=== PATIENT | female | born 1950 | race Caucasian/White ===

== ENCOUNTER 2019-06-18 05:46 | Day surgery (SDC) | payer MEDICARE, BC ==
[2019-06-17 16:07] VITALS: Ht 157.5 cm; Wt 82.0 kg
[~2019-06-18] VITALS: Ht 157.5 cm; Wt 82.0 kg
[2019-06-18] VITALS (13 sets, daily range): BP systolic 101–142; BP diastolic 53–74; PULSE 71–87; RESP 14–18
[~2019-06-18 05:46] MED LIST: ASPI-903 PO; ATOR20TA65 ORAL; LEVO100T8 ORAL
[2019-06-18] MEDS ORDERED: LACTATED RINGER'S 1,000 ML IV SCH (06:30)
--- NOTE | 2019-06-18 07:12 | PREAC ---
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 not on B-Castro Reported Medications Aspirin* (Aspirin* Chew) 81 Mg Tab.chew, 81 MG PO DAILY, TAB.CHEW 06/18/19 Levothyroxine Sodium* (Levothyroxine Sodium*) 100 Mcg Tablet, 1 TAB ORAL QAM 06/18/19 Atorvastatin Calcium (Atorvastatin Calcium) 20 Mg Tablet, 1 TAB ORAL QHS 06/18/19 Current Medications Lactated Ringer's 1,000 ml @ 0 mls/hr Q0M IV ; Start 06/18/19 at 06:30 Meds reviewed: Yes Allergies Coded Allergies: No Known Allergy (Unverified , 06/17/19) Allergies Reviewed: Yes Labs/Studies Labs Reviewed: Reviewed by anesthesiologist test: N/A Studies: ECG (sr), CXR (nl) Pre-procedure Exam Last vitals Vital Signs Date Temp Pulse Resp B/P (MAP) Pulse Ox O2 O2 Flow FiO2 Time Delivery Rate 06/18/19 97.6 71 18 123/62 98 Room Air 06:18 (82) Airway: Adequate mouth opening Mallampati: Mallampati I Teeth: Normal Lung: Normal Heart: Normal ASA Physical Status ASA physical status: 2 Emergency: None Planned Anesthetic General/MAC: LMA Nerve block: Sciatic (left) Planned Pain Management Single shot nerve block Pre-operative Attestations Prior to commencing anesthesia and surgery, the patient was re-evaluated, there was verification of: *The patient's identity *The results of appropriate recent lab work and preoperative vital signs *The above evaluation not changing prior to induction *Anesthetic plan, risk benefits, alternative and complications discussed with patient/family; questions answered; patient/family understands, accepts and wishes to proceed. NIKHIL SANON MD Jun 18, 2019 07:12
--- NOTE | 2019-06-18 07:14 | HPN ---
Date/Time of Note Date/Time of Note DATE: 06/18/19 TIME: 07:14 Interval H&P Admission Note Pt. seen H&P reviewed: No system changes BRITTANY JOHN MD Jun 18, 2019 07:14
[2019-06-18] MEDS ORDERED: MIDAZOLAM 1 MG/ML 2 ML INJ ONE (07:20)
[2019-06-18] MEDS ORDERED: ROPIVACAINE 0.5 % 30 ML VIAL ONE ×2 (07:20→08:37)
[2019-06-18] MEDS ORDERED: PROPOFOL 20 ML ONE (07:20)
[2019-06-18] MEDS ORDERED: METOCLOPRAMIDE 10 MG INJ ONE (07:21)
[2019-06-18] MEDS ORDERED: ONDANSETRON 4 MG INJ ONE (07:34)
[2019-06-18] MEDS ORDERED: CEFAZOLIN 1 GM INJ ONE (07:34)
[2019-06-18] MEDS ORDERED: FENTAnyl 50 MCG/ML VIAL ONE (07:35)
[2019-06-18] MEDS ORDERED: MEPERIDINE 25 MG INJ IV PRN (08:00)
[2019-06-18] MEDS ORDERED: ONDANSETRON 4 MG INJ IV PRN (08:00)
[2019-06-18] MEDS ORDERED: HYDROmorphONE 1 MG/5 ML IV SYRINGE IV PRN ×3 (08:00)
[2019-06-18] MEDS ORDERED: DIPHENHYDRAMINE 50 MG INJ IV PRN (08:00)
[2019-06-18] MEDS ORDERED: FENTAnyl 50 MCG/ML VIAL IV PRN ×3 (08:00)
[2019-06-18] MEDS ORDERED: OXYCODONE/ACETAMINOPHEN (5/325) TAB PO PRN ×2 (08:00)
[2019-06-18] MEDS ORDERED: BACITRACIN/POLYMYXIN 28.35 GM OINT TOP ONE (08:38)
[2019-06-18] MEDS ORDERED: POLYMYXIN/BACITRACIN 1L IRRIG ONE (08:38)
[2019-06-18] MEDS ORDERED: HYDROmorphONE 2 MG/ML SYG ONE (08:54)
[2019-06-18] MEDS ORDERED: morphine 2 MG INJ IV PRN (10:00)
[2019-06-18] MEDS ORDERED: KETOROLAC 30 MG INJ ONE (10:02)
--- NOTE | 2019-06-18 10:40 | OPR ---
Date/Time of Note Date/Time of Note DATE: 06/18/19 TIME: 10:16 Operative Report Procedure Date: Jun 18, 2019 Preoperative Diagnosis Left foot 2, 3, 4 TMT joint OA Postoperative Diagnosis Left foot 2, 3, 4 TMT joint OA Operation/Procedure Performed Left foot 2nd and 3rd TMT joint Arthrodesis with Calcaneal autograft and allograft Left foot 4th TMT joint resection arthroplasty [place] of left calcaneal autograft Placement of amniotic membrane Surgeon Brittany John MD Superintendent Pipelines Art Culp MD Anesthesia Type: general, other (Popliteal) Anesthesiologist: NIKHIL SANON MD Tourniquet Time: 102 minutes at 250 mmHg Estimated Blood Loss: minimal Transfusion none Specimen None Grafts/Implants Arthrex Dot night benedicto 15 x 18 mm and 18 x 18 mm Arthrex arthro-cell allograft Arthrex Amniontic Membrane Complications none Pt Condition Post Procedure: stable Disposition: PACU Indications Patient is a 69-year-old female with significant pain over her left second, third and fourth tarsometatarsal joint that has not resolved with served of measures. Given her ongoing pain patient is indicated for surgery. Risk Note: Patient was explained the risks and benefits of surgery and the patient's [place] language including not limited to infection, bleeding, injury to blood vessels, nerves, ligaments or tendons. Risks of anesthesia, deep vein thrombosis and need for reduce future surgery. Patient acknowledged these risk by signing the surgical consent form. Procedure Description The patient was met in the preoperative holding area. The correct operative site was marked and the consent and correct operative extremity was confirmed with both patient and consent. The patient was then brought to the operative theater and placed supine on the operative table and given preoperative antibiotics and preoperative anesthesia and preoperative regional block. Patient was then prepped and draped in the typical fashion. A timeout was taken and all parties in the room agreed it was the correct patient, extremity and procedure. Tourniquet was then brought to 250 mmHg and attention was initially turned to the lateral retromalleolar area and a 2 cm incision was made and brought down with care to avoid any injury to the sural nerve. Approximately 2.5 cc of bone autograft was removed from the calcaneus. The wound was irrigated and closed with a 3-0 Monocryl followed by a 4-0 nylon. Attention was then turned to the midfoot. Incision was made over the second tarsometatarsal joint and brought down to the joint. Care was taken to avoid any injury to the neurovascular bundle which was identified and retracted medially. The second and third TMT joint were identified and confirmed under fluoroscopy. And then the joint was then rongeured and prepped in the typical fashion using a 2-0 drill bit and extensive burring and rasping. Next the fourth tarsometatarsal joint was identified and resection arthroplasty was done at the base of the fourth metatarsal. It was then packed with fat at the joint space. Attention was then turned back to the second and third tarsometatarsal joints which were then further prepped and then packed with calcaneal autograft and allograft. The foot was then reduced with the TMT joints into reduced and compressed pos ition with the foot in dorsiflexion. A 18 x 18 mm staple was then placed over the second TMT joint followed by a 15 x 18 stable placed over the third TMT joint excellent compression and fixation was shown to be achieved under both AP, lateral and oblique x-rays. The wound was then gently irrigated and then the joints were then further packed and then an amniotic membrane was then placed over the fusion site followed by a second layer placed at the subdermal layer followed by closure with a 3-0 Monocryl followed by a 4-0 nylon in a vertical mattress fashion. The wound was then dressed with Xeroform and triple antibiotic ointment and placed in a well-padded short leg splint. At the end the case all sponge needle counts were correct and the patient taken to the PACU in a stable condition. In the PACU her toes were warm and well-perfused. Superintendent Pipelines surgeon note - An operations administrative assistant orthopedic surgeon was needed for this case to assist with positioning of the limb during repair and reduction of the joint and fixation of the fusion. Without a qualified orthopedic surgical garment fitter in this case the case would be significantly more complex and longer. BRITTANY JOHN MD Jun 18, 2019 10:30
[2019-06-18] MEDS ORDERED: EPHEDrine 25 MG/5 ML SYG ONE (10:50)
--- NOTE | 2019-06-19 08:23 | PAC ---
Date/Time of Note Date/Time of Note DATE: 06/19/19 TIME: 08:23 Post-Anesthesia Notes Post-Anesthesia Note Last documented vital signs Vital Signs Date Temp Pulse Resp B/P (MAP) Pulse Ox O2 O2 Flow FiO2 Time Delivery Rate 06/18/19 97.0 74 17 142/74 100 Room Air 11:00 (96) 06/18/19 2.0 10:22 Activity: WNL Respiratory function: WNL Cardiovascular function: WNL Mental status: Baseline Pain reasonably controlled: Yes Hydration appropriate: Yes Nausea/Vomiting absent: No NIKHIL SANON MD Jun 19, 2019 08:23
== END 2019-06-18 11:38 | disposition home or self-care (01) ==
LOC: SDS 05:46
PROVIDERS: ATTEND Orthopaedic Surgery
DX: M19.072 Primary osteoarthritis, left ankle and foot (principal)
CPT/HCPCS: 28730; 28899; 73630; 82306; J0690; J1170; J2250; J2405; J2765; J2795; J3010; J1885